=== PATIENT | male | born 1960 | race Two or more races ===

== ENCOUNTER 2017-12-17 14:00 | Outpatient (RCR) | payer BC | END 2017-12-27 | disposition home or self-care (01) | LOC: PTY 14:00 | DX: M54.2 Cervicalgia (principal); M54.9 Dorsalgia, unspecified; M19.90 Unspecified osteoarthritis, unspecified site ==

== ENCOUNTER 2017-12-31 14:40 | Outpatient (RCR) | payer BC | END 2018-01-26 | disposition home or self-care (01) | LOC: PTY 14:40 | DX: M54.2 Cervicalgia (principal); M54.9 Dorsalgia, unspecified; M19.90 Unspecified osteoarthritis, unspecified site ==